=== PATIENT | female | born 1940 | race Caucasian/White ===

== ENCOUNTER 2017-04-04 16:11 | Inpatient (IN) ==
[2017-04-04 16:50] LABS: Basophils % 0.1 %; Eosinophils # 0.1 K/mcL (0.0-0.6); Eosinophils % 0.7 %; Hematocrit 32.2 % (35.3-44.9); Hemoglobin 10.6 g/dL (11.5-15.4); Immature Granulocytes % 2.2 % (0-4); Lymphocytes % 9.5 %; Mean Corpuscular HGB Conc 32.9 g/dL (31.6-35.5); Mean Corpuscular Hemoglobin 29.6 pg (28.0-33.3); Mean Corpuscular Volume 89.9 fL (83.0-100.0); Mean Platelet Volume 10.7 fL (9.4-12.4); Monocytes # 1.3 K/mcL (0.0-1.3); Monocytes % 13.1 %; Neutrophils # 7.4 K/mcL (1.6-8.9); Platelet Count 199 K/mcL (140-400); Red Blood Count 3.58 M/mcL (3.82-4.97); Red Cell Distribution Width 14.4 % (11.5-14.5); Segmented Neutrophils % 74.4 %
[2017-04-04 17:02] LABS: BUN/Creatinine Ratio 15 (6-26); Blood Urea Nitrogen 14 mg/dL (7-20); Calcium 9.9 mg/dL (8.6-10.8); Carbon Dioxide 22 mEq/L (19-29); Chloride 97 mEq/L (98-109); Glucose 238 mg/dL (70-99); Osmolality,Calculated 284 (280-300); Potassium 3.1 mEq/L (3.5-4.5); Sodium 133 mEq/L (136-145); eGFR For African Americans > 60 (> 60); eGFR For Non-African Americans 57 (> 60)
[2017-04-04 17:24] LABS: Thyroid Stimulating Hormone 2.447 mcIU/mL (0.350-4.840)
[2017-04-04] MEDS ORDERED: Levofloxacin 750 MG/150 ML 750 MG/150 ML BAG IVPB ONE (17:59)
[2017-04-04] MEDS ORDERED: 0.9 % Sodium Chloride 1,000 ML IVC ONE (17:59)
--- NOTE | 2017-04-04 18:10 | Emergency Department Note ---
Disposition Clinical Impression: Dizziness Pneumonia Qualifiers: Pneumonia type: due to unspecified organism Laterality: right Lung location: lower lobe of lung Qualified Code(s): J18.1 - Lobar pneumonia, unspecified organism Fall Qualifiers: Encounter type: initial encounter Qualified Code(s): W19.XXXA - Unspecified fall, initial encounter Disposition: Admitted As Inpatient Condition: Fair Time of Disposition: 18:11 Fall HPI - General Chief Complaint: ED Fall Stated Complaint: fall Time Seen by Provider: 04/04/17 16:20 Source: patient, EMS Nursing Notes Reviewed: Yes Vital Signs Reviewed: Yes - History of Present Illness HPI Narrative: 76-year-old female presented to the emergency department with concern for local history of cough, and new onset dizziness and falls at home today. Patient fell and hit her head on an ironing board earlier today at 338 this morning. Patient did not come to the emergency department to be left that. She fell again later on this afternoon which prompted them to return. Patient does have past medical history of strokes. Patient does state that she has had this type of dizziness with the stroke. Patient denies any decreased sensation in her arms or legs otherwise. Patient denies any slurring of speech, or issues with getting words out. Patient is currently not on any blood thinners at this time. - Related Data Home Medications Medication Instructions Recorded Confirmed Amlodipine 02/13/15 02/13/15 Clopidogrel 02/13/15 02/13/15 Coreg 02/13/15 02/13/15 Fish Oil 500 mg Softgel 02/13/15 02/13/15 Gabapentin 02/13/15 02/13/15 Glimepiride 02/13/15 02/13/15 Hydrocodone/Acetaminophen 02/13/15 02/13/15 Klor-Con 02/13/15 02/13/15 Levothyroxine 02/13/15 02/13/15 Losartan 02/13/15 02/13/15 Metformin 02/13/15 02/13/15 Pramipexole 02/13/15 02/13/15 Pravastatin Sodium 02/13/15 02/13/15 Primidone 02/13/15 02/13/15 Ropinerole 02/13/15 02/13/15 Sertraline 02/13/15 02/13/15 Vitamin D3/Folic Acid 02/13/15 02/13/15 Previous Rx's Medication Instructions Recorded Azithromycin [Azithromycin 6-Tab 250 mg PO DAILY #6 tab 03/19/16 Pack] Allergies Allergy/AdvReac Type Severity Reaction Status Date / Time Penicillins [PCN] Allergy Swelling Verified 02/13/15 16:30 of Lip/Tongue/Throat Sulfa (Sulfonamide Allergy Swelling Verified 02/13/15 16:30 Antibiotics) of Lip/Tongue/Throat CT dye Allergy Hives Uncoded 02/13/15 16:30 All systems ED: reviewed and negative except as stated. Review of Systems: As Per HPI ENT ED: Reports: other Cardiovascular: Denies: chest pain Respiratory: Reports: cough (Therefore had pain), dyspnea Gastrointestinal: Denies: abdominal pain, nausea, vomiting Neurological: Reports: headache, abnormal gait. Denies: weakness, numbness, paresthesias, confusion Fall PMH - Past Medical History Medical history: Reports: CVA, diabetes, hyperlipidemia, hypertension, thyroid disease Psychiatric history: Reports: anxiety, depression - Social History Smoking Status: Former smoker Alcohol use: Reports: none Drug use: Reports: none Physical Exam CONSTITUTIONAL: Alert and oriented X3, well-nourished 76-year-old female, well appearing, in no apparent distress HEAD: Normocephalic; ecchymosis of the left aspect of the forehead EYES: PERRL, no scleral icterus. NOSE: The nose is normal in appearance without rhinorrhea Neck: Tenderness to palpation of the midline cervical spine RESP: Normal chest excursion with respiration; breath sounds clear and equal bilaterally; no wheezes, rhonchi, or rales CARD: Regular rhythm, without murmurs, rub or gallop Back: Tenderness to palpation of the midthoracic spine ABD: Non-distended; non-tender, soft,without rigidity, rebound or guarding SKIN: Normal for age and race; warm and dry; no apparent lesions Neuro: GCS 15, no focal neurologic deficits, normal finger to nose, no pronator drift, greater nerves II-12 grossly intact. Sensation intact bilaterally in the upper and lower extremities, strength 5 out of 5 in the upper and lower extremities - General General appearance: alert, in no apparent distress Course Vital Signs Temperature 98.8 F 04/04/17 16:13 Pulse Rate 92 04/04/17 16:13 Respiratory Rate 16 04/04/17 16:13 Blood Pressure 172/92 04/04/17 16:13 O2 Sat by Pulse Oximetry 96 04/04/17 16:13 Temperature 98 F 04/04/17 23:19 Pulse Rate 88 04/04/17 23:19 Respiratory Rate 14 04/04/17 23:19 Blood Pressure 167/92 04/04/17 23:19 O2 Sat by Pulse Oximetry 94 04/04/17 23:19 Oxygen Delivery Oxygen Delivery Nasal Cannula Fall - MDM Narrative Medical decision making narrative: 76-year-old female presents to the emergency department with concern for having some dizziness and falls. Patient had ecchymosis along the aspect of her forehead. CT scan of the head was obtained without contrast to rule out intracranial hemorrhage. This is negative. CT scan was also obtained of the cervical, thoracic, lumbar spine. This is negative as well. Patient's chest CT reveals patchy opacity of the right lower lobe that was concerning for pneumonia. Patient did complain of a month-long history of cough, so I clinically do suspect a pneumonia. I gave the patient Levaquin here in the emergency department to treat her pneumonia. I also admitted the patient to the hospital because there was concern that patient may need a further evaluation as to the aspect of her dizziness and cerebellar dysfunction. I discussed the plan with the patient family at bedside and they agreed. Patient was admitted to the hospitalist. Patient was in no acute distress and hemodynamically stable at time of admission. Abdomen/Pelvis CT 04/04/17 16:25 IMPRESSION: No acute traumatic abnormality in the chest, abdomen, or pelvis on this noncontrast examination. Patchy opacity in the right lower lobe, concerning for pneumonia and/or aspiration. Diverticulosis. D/ / 04/04/2017 17:29:05 Nigel Bryant MD / [place] Interpreting Provider: Nigel Bryant MD Chest CT 04/04/17 16:25 IMPRESSION: No acute traumatic abnormality in the chest, abdomen, or pelvis on this noncontrast examination. Patchy opacity in the right lower lobe, concerning for pneumonia and/or aspiration. Diverticulosis. D/ / 04/04/2017 17:29:05 Nigel Bryant MD / [place] Interpreting Provider: Nigel Bryant MD Head CT 04/04/17 16:25 IMPRESSION: No acute intracranial abnormality. Mild soft tissue swelling along the inferior left forehead without evidence of fracture. D/ / William Carr MD / William Carr MD Interpreting Provider: William Carr MD Cervical Spine CT 04/04/17 16:28 IMPRESSION: 1. Decreased bone mineral density. 2. Normal alignment with multilevel degenerative changes resulting in foraminal stenosis. 3. No acute fracture. D/ / 04/04/2017 17:16:33 Rene Landeros MD / [place] Interpreting Provider: Rene Landeros MD Lumbar Spine CT 04/04/17 18:10 IMPRESSION: No acute thoracic or lumbar spine abnormality. D/ / Julian Lu MD / Julian Lu MD Interpreting Provider: Julian Lu MD Thoracic Spine CT 04/04/17 18:10 IMPRESSION: No acute thoracic or lumbar spine abnormality. D/ / Julian Lu MD / Julian Lu MD Interpreting Provider: Julian Lu MD Vital Signs Temperature 98.8 F 04/04/17 16:13 Pulse Rate 92 04/04/17 16:13 Respiratory Rate 16 04/04/17 16:13 Blood Pressure 172/92 04/04/17 16:13 O2 Sat by Pulse Oximetry 96 04/04/17 16:13 Temperature 98 F 04/04/17 23:19 Pulse Rate 88 04/04/17 23:19 Respiratory Rate 14 04/04/17 23:19 Blood Pressure 167/92 04/04/17 23:19 O2 Sat by Pulse Oximetry 94 04/04/17 23:19 Oxygen Delivery Oxygen Delivery Nasal Cannula - Lab Data Result diagrams: 04/04/17 16:39 04/04/17 16:39 Lab Results 04/04/17 04/04/17 04/04/17 Range/Units 16:00 16:39 16:39 WBC 10.0 (4.3-11.1) K/mcL RBC 3.58 L (3.82-4.97) M/mcL Hgb 10.6 L (11.5-15.4) g/dL Hct 32.2 L (35.3-44.9) % MCV 89.9 (83.0-100.0) fL MCH 29.6 (28.0-33.3) pg MCHC 32.9 (31.6-35.5) g/dL RDW 14.4 (11.5-14.5) % Plt Count 199 (140-400) K/mcL MPV 10.7 (9.4-12.4) fL Immature Gran % 2.2 (0-4) % Seg Neutrophils % 74.4 % Lymphocytes % 9.5 % Monocytes % 13.1 % Eosinophils % 0.7 % Basophils % 0.1 % Neutrophils # 7.4 (1.6-8.9) K/mcL Lymphocytes # 1.0 (0.6-4.6) K/mcL Monocytes # 1.3 (0.0-1.3) K/mcL Eosinophils # 0.1 (0.0-0.6) K/mcL Basophils # 0.0 (0.0-0.2) K/mcL Sodium (136-145) mEq/L Potassium (3.5-4.5) mEq/L Chloride (98-109) mEq/L Carbon Dioxide (19-29) mEq/L BUN (7-20) mg/dL Creatinine (0.57-1.11) mg/dL Est GFR ( Amer) (> 60) Est GFR (Non-Af Amer) (> 60) BUN/Creatinine Ratio (6-26) Glucose (70-99) mg/dL Calculated Osmolality (280-300) Calcium (8.6-10.8) mg/dL Troponin I 0.01 (0-0.03) ng/mL TSH (0.350-4.840) mcIU/mL Urine Color Yellow (Yellow) Urine Clarity Clear (Clear) Urine pH 6.5 (5.0-8.0) pH Units Ur Specific Hermin[place] 1.018 (1.010-1.025) Urine Protein Trace (Neg-Trace) mg/dL Urine Glucose (UA) 250 H (Normal) mg/dL Urine Ketones Negative (Negative) mg/dL Urine Blood Trace H (Negative) Urine Nitrite Negative (Negative) Urine Bilirubin Negative (Negative) Urine Urobilinogen Normal (Normal) mg/dL Ur Leukocyte Esterase Negative (Negative) Urine Microscopic RBC 0-3 (0-3) per hpf Urine Microscopic WBC 0-3 (0-3) per hpf Ur Squamous Epith Cells Moderate H (None-Few) per lpf Urine Bacteria None Seen (None-Few) per hpf Hyaline Casts None Seen (None-Few) per lpf Ur Culture Indicated? NO (NO) 04/04/17 Range/Units 16:39 WBC (4.3-11.1) K/mcL RBC (3.82-4.97) M/mcL Hgb (11.5-15.4) g/dL Hct (35.3-44.9) % MCV (83.0-100.0) fL MCH (28.0-33.3) pg MCHC (31.6-35.5) g/dL RDW (11.5-14.5) % Plt Count (140-400) K/mcL MPV (9.4-12.4) fL Immature Gran % (0-4) % Seg Neutrophils % % Lymphocytes % % Monocytes % % Eosinophils % % Basophils % % Neutrophils # (1.6-8.9) K/mcL Lymphocytes # (0.6-4.6) K/mcL Monocytes # (0.0-1.3) K/mcL Eosinophils # (0.0-0.6) K/mcL Basophils # (0.0-0.2) K/mcL Sodium 133 L (136-145) mEq/L Potassium 3.1 L (3.5-4.5) mEq/L Chloride 97 L (98-109) mEq/L Carbon Dioxide 22 (19-29) mEq/L BUN 14 (7-20) mg/dL Creatinine 0.95 (0.57-1.11) mg/dL Est GFR ( Amer) > 60 (> 60) Est GFR (Non-Af Amer) 57 L (> 60) BUN/Creatinine Ratio 15 (6-26) Glucose 238 H (70-99) mg/dL Calculated Osmolality 284 (280-300) Calcium 9.9 (8.6-10.8) mg/dL Troponin I (0-0.03) ng/mL TSH 2.447 (0.350-4.840) mcIU/mL Urine Color (Yellow) Urine Clarity (Clear) Urine pH (5.0-8.0) pH Units Ur Specific Herminie (1.010-1.025) Urine Protein (Neg-Trace) mg/dL Urine Glucose (UA) (Normal) mg/dL Urine Ketones (Negative) mg/dL Urine Blood (Negative) Urine Nitrite (Negative) Urine Bilirubin (Negative) Urine Urobilinogen (Normal) mg/dL Ur Leukocyte Esterase (Negative) Urine Microscopic RBC (0-3) per hpf Urine Microscopic WBC (0-3) per hpf Ur Squamous Epith Cells (None-Few) per lpf Urine Bacteria (None-Few) per hpf Hyaline Casts (None-Few) per lpf Ur Culture Indicated? (NO) - EKG Data EKG attestation: Yes I reviewed and interpreted this EKG. EKG results narrative: 17:27 82 bpm, FL interval 244 ms, QRS duration 106, QT 414 ms, QTC 453 ms, normal axis. Sinus rhythm with a ventricular rate of 83 bpm. There is first-degree AV block. There are no changes on his electrocardiogram in comparison with a previous one performed on March 19, 2016 Attestation Statement - Attestation Attestation: I examined this patient and my medical decision-making was reviewed with the Resident Physician. I agree with the documented findings, disposition and treatment plan as described except to the extent set forth below. Findings consistent with fall. CT scan shows no evidence of acute fracture or injury. Patient was found to have pneumonia. Will admit for evaluation of pneumonia. Started on Levaquin. Patient stable at time of admission.
[2017-04-04 18:11] LABS: Bilirubin,Urine Negative (Negative); Blood,Urine Trace (Negative); Clarity,Urine Clear (Clear); Color,Urine Yellow (Yellow); Glucose,Urine (UA) 250 mg/dL (Normal); Ketones,Urine Negative (Negative); Leukocyte Esterase,Urine Negative (Negative); Nitrite,Urine Negative (Negative); PH,Urine 6.5 pH Units (5.0-8.0); Protein,Urine Trace mg/dL (Neg-Trace); Specific Gravity,Urine 1.018 (1.010-1.025); Urobilinogen,Urine Normal (Normal)
[2017-04-04 18:14] LABS: Bacteria,Urine None Seen per hpf (None-Few); Hyaline Casts,Urine None Seen per lpf (None-Few); RBC,Urine 0-3 per hpf (0-3); Squamous Epithelial Cell,Urine Moderate per lpf (None-Few); WBC,Urine 0-3 per hpf (0-3)
[2017-04-04] MEDS ORDERED: Ondansetron 4 MG/2 ML VIAL IVP PRN (19:21)
[2017-04-04] MEDS ORDERED: Naloxone 0.4 MG/ML INJ IVP PRN (19:21)
[2017-04-04] MEDS ORDERED: Acetaminophen 325 MG TABLET PO PRN (19:21)
[2017-04-04] MEDS ORDERED: D5% in Water 1,000 ML IVC PRN (19:24)
[2017-04-04] MEDS ORDERED: *HR* Dextrose 50 % in Water (Syg) 50 ML SYRINGE IVP PRN (19:24)
[2017-04-04] MEDS ORDERED: Dextrose Gel 15 GM PO PRN ×2 (19:24)
[2017-04-04] MEDS ORDERED: Benzonatate 100 MG CAPSULE PO PRN (19:26)
--- NOTE | 2017-04-04 19:40 | Internal Med History&Physical ---
Date of Encounter: 04/04/17 Time of Encounter: 19:29 Assessment and Plan (1) Pneumonia Current visit: Yes Status: Acute 1 patient has been experiencing weakness and fatigue as well as an unproductive cough. CT chest does reveal right lower lobe opacity. Blood cultures have been obtained patient was initiated on Levaquin which we will continue Continue with Bronchodilators Oxygen as needed titrated to maintain SPO2 greater than 92% Qualifiers: Pneumonia type: due to unspecified organism Laterality: right Lung location: lower lobe of lung Qualified Code(s): J18.1 - Lobar pneumonia, unspecified organism (2) Fall Current visit: Yes Status: Acute 1 patient has been experiencing frequent falls she fell twice today but I suspect is related to pneumonia-she previously fell approx [address] We will place patient on fall precautions Consult PT and OT Qualifiers: Encounter type: initial encounter Qualified Code(s): W19.XXXA - Unspecified fall, initial encounter (3) EKG abnormality Current visit: Yes Status: Acute 1. Patient does have a prolonged MS interval on EKG compared to previous. She also has a systolic murmur which she states is new. We will obtain cardiac echo 2 recheck EKG in a.m. (4) Diabetes mellitus Current visit: Yes Status: Acute 1 Accu-Cheks before meals at bedtime for sinus scale insulin and we will hold oral medications for now. 2 diabetic diet Qualifiers: Diabetes mellitus type: type 2 Diabetes mellitus complication status: without complication Diabetes mellitus joint terminal attack controller insulin use: without mcc use Qualified Code(s): E11.9 - Type 2 diabetes mellitus without complications (5) DVT prophylaxis Current visit: Yes Status: Acute [facility] Internal Medicine - H&P: HPI Chief complaint: fall Admitted From: Emergency Dept Plans for Post Hospital Care: Home History of present illness: Ms. White is a 76 year old female Has a glass or CVA 2 diabetes hyperlipidemia hypertension and breast cancer and hypothyroid . She will call to 3 AM this morning to use the restroom and she was walking she began to fall forward she hit her face she is too weak to get back up. Her assisted her back to bed. Later on in the day the patient had another episode where she fell forward again she felt too weak to get up. She has been experiencing a nonproductive cough no fevers or chills chest pain or shortness of breath. She contributes to the cough to seasonal allergies. She presented to the ER with the above complaints. According to ER records CT scan of head and neck thoracic spine abdomen and pelvis were all negative for any acute fractures or traumatic injuries. CT of chest did reveal right lower lobe opacities concerning for pneumonia. Patient was somewhat hypoxic with SPO2 93% was placed on 2 L nasal cannula. Blood cultures were obtained patient was initiated on Levaquin and has been admitted for further workup and evaluation. Presently patient is on. Respiratory distress she denies any chest pain or shortness of breath at this time. She is hemodynamically stable. I rviewed this case with Dr Sahni who agrees with plan Past Med Surg Social Fam HX - Past Medical History Medical history: CVA, diabetes, hyperlipidemia, hypertension, thyroid disease Psychiatric history: anxiety, depression - Social History Smoking Status: Former smoker Smokeless Tobacco Status: No Alcohol use: none Drug use: none Internal Medicine - H&P: Meds Amlodipine 02/13/15 [History] Clopidogrel 02/13/15 [History] Coreg 02/13/15 [History] Fish Oil 500 mg Softgel 02/13/15 [History] Gabapentin 02/13/15 [History] Glimepiride 02/13/15 [History] Hydrocodone/Acetaminophen 02/13/15 [History] Klor-Con 02/13/15 [History] Levothyroxine 02/13/15 [History] Losartan 02/13/15 [History] Metformin 02/13/15 [History] Pramipexole 02/13/15 [History] Pravastatin Sodium 02/13/15 [History] Primidone 02/13/15 [History] Ropinerole 02/13/15 [History] Sertraline 02/13/15 [History] Vitamin D3/Folic Acid 02/13/15 [History] Azithromycin [Azithromycin 6-Tab Pack] 250 mg PO DAILY #6 tab 03/19/16 [Rx] 3 Allergy/AdvReac Type Severity Reaction Status Date / Time Penicillins [PCN] Allergy Swelling Verified 02/13/15 16:30 of Lip/Tongue/Throat Sulfa (Sulfonamide Allergy Swelling Verified 02/13/15 16:30 Antibiotics) of Lip/Tongue/Throat CT dye Allergy Hives Uncoded 02/13/15 16:30 All Systems PM: A 10-system review of systems was performed and is negative for pertinent findings except as documented above in the HPI. - Constitutional Constitutional: fatigue, weakness, no chills, no fever(s), no night sweats - EENT Eyes: no change in vision, no discharge, no pain, no photophobia Ears: no ear discharge, no ear pain, no tinnitus Nose, mouth and throat: no dysphagia, no nasal discharge, no neck pain, no sore throat - Cardiovascular Cardiovascular ROS IM: no chest pain, no diaphoresis, no dyspnea, no lightheadedness, no palpitations, no syncope - Respiratory Respiratory: cough - Gastrointestinal Gastrointestinal: no abdominal pain, no diarrhea, no hematemesis, no hematochezia, no melena, no nausea, no vomiting - Genitourinary Genitourinary: no change in urinary stream, no dysuria, no flank pain, no hematuria - Musculoskeletal Musculoskeletal ROS IM: no numbness, no tingling - Integumentary Integumentary IM: no rash, no unusual bruising - Neurological Neurological ROS: frequent falls, no confusion, no convulsions, no focal weakness, no numbness, no tingling, no tremor(s) - Hematologic/Lymphatic Hematologic/Lymphatic: no easy bruising - Constitutional Vitals: Temp Pulse Resp BP Pulse Ox 98.8 F 84 16 165/94 93 04/04/17 16:13 04/04/17 18:53 04/04/17 18:53 04/04/17 18:53 04/04/17 18:53 General appearance: Present: A&O X 3 - Head Head exam: Present: atraumatic, normocephalic - Eye Eye exam: Present: PERRL, conjuntiva pink, sclera anicteric Pupils: Present: PERRL - Neck Neck exam general surgery: Present: supple, trachea midline. Absent: lymphadenopathy - Respiratory Respiratory exam: Present: CTAB. Absent: accessory muscle use, rales, rhonchi, wheezes - Cardiovascular Cardiovascular exam: Present: RRR, +S1, +S2, systolic murmur. Absent: diastolic murmur, gallop, rubs - GI/Abdominal GI/Abdominal exam: Present: normal bowel sounds, soft, no peritoneal signs. Absent: distended, tenderness - Extremities Exam Extremities exam: Present: warm, radial pulses palpable and symmetrical. Absent : calf tenderness, cyanotic, pedal edema - Neurological Exam Neurological exam: Present: CN II-XII intact, oriented X3, no focal deficits. Absent: pronater drift, facial droop, speech deficit - Skin Skin exam: Present: dry, intact Internal Med - H&P Results - Labs CBC & Chem 7: 04/04/17 16:39 04/04/17 16:39 - EKG Data EKG shows normal: sinus rhythm - EKG Data Prior EKG available for review: yes When compared to previous EKG: there are significant changes EKG comments: 04/04/17 20:03 Prolonged MS interval compared to previous 04/04/17 20:03 - Diagnostic Studies Other Images Additional comments: Abdomen/Pelvis CT 04/04/17 16:25 IMPRESSION: No acute traumatic abnormality in the chest, abdomen, or pelvis on this noncontrast examination. Patchy opacity in the right lower lobe, concerning for pneumonia and/or aspiration. Diverticulosis. D/ / 04/04/2017 17:29:05 Nigel Bryant MD / [place] Interpreting Provider: Nigel Bryant MD Chest CT 04/04/17 16:25 IMPRESSION: No acute traumatic abnormality in the chest, abdomen, or pelvis on this noncontrast examination. Patchy opacity in the right lower lobe, concerning for pneumonia and/or aspiration. Diverticulosis. D/ / 04/04/2017 17:29:05 Niegl Bryant MD / [place] Interpreting Provider: Nigel Bryant MD Head CT 04/04/17 16:25 IMPRESSION: No acute intracranial abnormality. Mild soft tissue swelling along the inferior left forehead without evidence of fracture. D/ / William Carr MD / William Carr MD Interpreting Provider: William Carr MD Cervical Spine CT 04/04/17 16:28 IMPRESSION: 1. Decreased bone mineral density. 2. Normal alignment with multilevel degenerative changes resulting in foraminal stenosis. 3. No acute fracture. D/ : / 04/04/2017 17:16:33 Rene Landeros MD / [place] Interpreting Provider: Rene Landeros MD Lumbar Spine CT 04/04/17 18:10 IMPRESSION: No acute thoracic or lumbar spine abnormality. D/ / Julian Lu MD / Julian Lu MD Interpreting Provider: Julian Lu MD Thoracic Spine CT 04/04/17 18:10
[2017-04-04] MEDS ORDERED: Potassium Citrate 10 MEQ TABLET.ER PO ONE (19:47)
[2017-04-04] MEDS ORDERED: *HR* Morphine 2 MG/ML SYRINGE IVP ONE (20:06)
[2017-04-04] MEDS ORDERED: Aspirin 81 MG TAB.CHEW PO SCH (21:45)
[2017-04-04] MEDS: Insulin LISPRO 300 UNITS/3 ML VIAL SQ SCH (22:37)
[2017-04-05 05:37] LABS: Basophils % 0.1 %; Eosinophils # 0.1 K/mcL (0.0-0.6); Eosinophils % 1.6 %; Hematocrit 31.7 % (35.3-44.9); Hemoglobin 10.4 g/dL (11.5-15.4); Immature Granulocytes % 2.2 % (0-4); Lymphocytes # 0.5 K/mcL (0.6-4.6); Lymphocytes % 6.3 %; Mean Corpuscular HGB Conc 32.8 g/dL (31.6-35.5); Mean Corpuscular Hemoglobin 29.6 pg (28.0-33.3); Mean Corpuscular Volume 90.3 fL (83.0-100.0); Mean Platelet Volume 11.1 fL (9.4-12.4); Monocytes % 13.8 %; Neutrophils # 5.5 K/mcL (1.6-8.9); Platelet Count 183 K/mcL (140-400); Red Blood Count 3.51 M/mcL (3.82-4.97); Red Cell Distribution Width 14.3 % (11.5-14.5)
[2017-04-05 05:48] LABS: BUN/Creatinine Ratio 14 (6-26); Blood Urea Nitrogen 13 mg/dL (7-20); Calcium 9.5 mg/dL (8.6-10.8); Carbon Dioxide 26 mEq/L (19-29); Chloride 96 mEq/L (98-109); Glucose 249 mg/dL (70-99); Osmolality,Calculated 280 (280-300); Potassium 3.7 mEq/L (3.5-4.5); Sodium 131 mEq/L (136-145); eGFR For African Americans > 60 (> 60); eGFR For Non-African Americans 59 (> 60)
[2017-04-05] MEDS: *HR* Enoxaparin 40 MG/0.4 ML SYRINGE SQ SCH (06:15)
[2017-04-05] MEDS ORDERED: 0.9 % Sodium Chloride 1,000 ML IVC SCH (08:15)
[2017-04-05] MEDS: Insulin LISPRO 300 UNITS/3 ML VIAL SQ SCH ×4 (08:34→21:59)
[2017-04-05] MEDS: amLODIPine 5 MG TABLET PO SCH (08:37)
[2017-04-05] MEDS: Levofloxacin 750 MG/150 ML 750 MG/150 ML BAG IVPB SCH (08:37)
[2017-04-05] MEDS: Ipratropium/Albuterol Neb 3 ML IH SCH ×3 (10:19→22:25)
--- NOTE | 2017-04-05 10:40 | Internal Med Progress Note ---
Date of Encounter: 04/05/17 Time of Encounter: 09:30 - Assessment and plan (1) Pneumonia Current Visit: Yes Status: Acute Assessment and plan: Patient has been experiencing weakness and fatigue as well as an unproductive frequent cough. CT chest does reveal right lower lobe opacity. Blood cultures drawn and pending Continue with Bronchodilators, Levaquin Oxygen as needed, titrate to maintain SPO2 greater than 92%.Pt is not requiring supplemental 02. Qualifiers: Pneumonia type: due to unspecified organism Laterality: right Lung location: lower lobe of lung Qualified Code(s): J18.1 - Lobar pneumonia, unspecified organism (2) Fall Current Visit: Yes Status: Acute Assessment and plan: Patient reports 2 falls on day of admission. She denies falls prior to this. She has no injuries from falls. She is complaining of plantar surface right foot pain, left knee pain, and posterior neck pain. There is no obvious injury to any of the sites. Neck CT was negative. Will apply ice and/or BenGay for comfort. Left knee and right foot x-rays are ordered and pending. Patient states that she is unable to bear weight on right foot due to pain. Qualifiers: Encounter type: initial encounter Qualified Code(s): W19.XXXA - Unspecified fall, initial encounter (3) Diabetes mellitus Current Visit: Yes Status: Acute Assessment and plan: A1c 7.2% in November. We will reorder that has been longer than 90 days. Continue sliding scale insulin, Accu-Cheks before meals at bedtime, diabetic diet. Qualifiers: Diabetes mellitus type: type 2 Diabetes mellitus complication status: without complication Diabetes mellitus correction insulin use: without intermediate school teacher use Qualified Code(s): E11.9 - Type 2 diabetes mellitus without complications (4) EKG abnormality Current Visit: Yes Status: Acute Assessment and plan: On admission, patient had prolonged CA interval on EKG compared to previous. Patient also has murmur that she states is new. She denies chest pain. She denies any shortness of breath or diaphoresis. Cardiac echo ordered and pending. We will continue to monitor EKGs. Continue telemetry. (5) DVT prophylaxis Current Visit: Yes Status: Acute Assessment and plan: Lovenox subcutaneous. Encourage ambulation. - Time Spent With Patient less than 15 minutes - Subjective Interval history: Patient was seen and assessed at 9:30 AM. She is alert, oriented, pleasant. She has hematomas to bilateral orbits. She states she had 2 falls yesterday, once falling face first onto the sidewalk outside of her home. She states that she is feeling significantly better today and is willing to see physical therapy and occupational therapy tomorrow. She reports left knee pain and right plantar surface foot pain. X-rays have been ordered and are pending. She denies nausea, vomiting, diaphoresis, chest pain, dizziness or vision changes. She dates that she had a headache yesterday after the fall, it has resolved today. - Constitutional Vitals: Temp Pulse Resp BP Pulse Ox 98.2 F 75 16 138/76 94 04/05/17 07:21 04/05/17 07:21 04/05/17 07:21 04/05/17 07:21 04/05/17 07:21 General appearance: Present: cooperative, A&O X 3, pleasant, no acute distress, answers questions appropriately - Head Head exam: Present: normocephalic. Absent: atraumatic, normal inspection - Eye Eye exam: Present: periorbital swelling, periorbital tenderness, PERRL, conjuntiva pink, sclera anicteric. Absent: normal appearance - Neck Neck exam general surgery: Present: tenderness, supple, trachea midline Additional comments: Patient fell on iron board and laid on it on her posterior neck for approximately one hour. Tender to palpation today. No obvious signs of injury. - Respiratory Respiratory exam: Present: decreased breath sounds, CTAB. Absent: accessory muscle use, chest wall tenderness, rales, rhonchi, wheezes - Cardiovascular Cardiovascular exam: Present: RRR, +S1, +S2. Absent: diastolic murmur, gallop, rubs, systolic murmur - GI/Abdominal GI/Abdominal exam: Present: normal bowel sounds, soft, no peritoneal signs. Absent: distended, hepatomegaly, tenderness - Extremities Exam Extremities exam: Present: normal capillary refill, normal inspection, tenderness, warm, radial pulses palpable and symmetrical. Absent: calf tenderness, cyanotic, joint swelling, pedal edema - Neurological Exam Neurological exam: Present: alert, oriented X3, no focal deficits. Absent: altered, facial droop, speech deficit - Skin Skin exam: Present: dry, intact, normal color, warm Internal Medicine: Result - Labs CBC & Chem 7: 04/05/17 05:21 04/05/17 05:21 Labs: Short CBC 04/05/17 Range/Units 05:21 WBC 7.3 (4.3-11.1) K/mcL Hgb 10.4 L (11.5-15.4) g/dL Hct 31.7 L (35.3-44.9) % Plt Count 183 (140-400) K/mcL Neutrophils # 5.5 (1.6-8.9) K/mcL BMP 04/05/17 05:21 Sodium 131 L Potassium 3.7 Chloride 96 L Carbon Dioxide 26 BUN 13 Creatinine 0.92 Glucose 249 H Calcium 9.5 Cardiac Enzymes 04/04/17 04/05/17 Range/Units 22:46 05:21 Troponin I 0.01 0.01 (0-0.03) ng/mL Consult Discharge Plan - Plan Referrals: Jovanna Gordillo, LADLE PULLER [Primary Care Provider] -
[2017-04-05] MEDS ORDERED: Methyl Salicylate/Menthol 28 GM TUBE TP PRN (11:14)
[2017-04-05] MEDS ORDERED: amLODIPine 5 MG TABLET PO SCH (15:00)
[2017-04-05] MEDS: Losartan/HCTZ 50-12.5 TABLET PO SCH (17:18)
[2017-04-05] MEDS: Gabapentin 300 MG CAPSULE PO SCH (21:45)
[2017-04-05] MEDS: rOPINIRole 1 MG TABLET PO SCH (21:46)
[2017-04-05] MEDS ORDERED: *HR* Morphine 2 MG/ML SYRINGE IVP PRN (22:17)
[2017-04-06] MEDS: Ipratropium/Albuterol Neb 3 ML IH SCH ×4 (03:29→21:28)
[2017-04-06 05:06] LABS: Eosinophils # 0.1 K/mcL (0.0-0.6); Eosinophils % 1.9 %; Hematocrit 30.2 % (35.3-44.9); Hemoglobin 9.9 g/dL (11.5-15.4); Immature Granulocytes % 1.9 % (0-4); Lymphocytes # 0.7 K/mcL (0.6-4.6); Lymphocytes % 11.8 %; Mean Corpuscular HGB Conc 32.8 g/dL (31.6-35.5); Mean Corpuscular Hemoglobin 29.5 pg (28.0-33.3); Mean Corpuscular Volume 89.9 fL (83.0-100.0); Mean Platelet Volume 11.3 fL (9.4-12.4); Monocytes # 0.9 K/mcL (0.0-1.3); Monocytes % 15.4 %; Neutrophils # 4.1 K/mcL (1.6-8.9); Platelet Count 190 K/mcL (140-400); Red Blood Count 3.36 M/mcL (3.82-4.97); Red Cell Distribution Width 13.9 % (11.5-14.5)
[2017-04-06 05:15] LABS: Hemoglobin A1C 7.7 %
[2017-04-06 05:21] LABS: BUN/Creatinine Ratio 12 (6-26); Blood Urea Nitrogen 11 mg/dL (7-20); Calcium 9.4 mg/dL (8.6-10.8); Carbon Dioxide 24 mEq/L (19-29); Chloride 97 mEq/L (98-109); Glucose 217 mg/dL (70-99); Osmolality,Calculated 276 (280-300); Potassium 3.4 mEq/L (3.5-4.5); Sodium 130 mEq/L (136-145); eGFR For African Americans > 60 (> 60); eGFR For Non-African Americans 59 (> 60)
[2017-04-06] MEDS: *HR* Enoxaparin 40 MG/0.4 ML SYRINGE SQ SCH (05:24)
[2017-04-06] MEDS ORDERED: hydroCHLOROthiazide 25 MG TABLET PO SCH (09:00)
[2017-04-06] MEDS: amLODIPine 5 MG TABLET PO SCH (09:28)
[2017-04-06] MEDS: Losartan/HCTZ 50-12.5 TABLET PO SCH (09:28)
[2017-04-06] MEDS: Cholecalciferol (D-3) 1,000 UNIT TABLET PO SCH (09:28)
[2017-04-06] MEDS: Insulin LISPRO 300 UNITS/3 ML VIAL SQ SCH ×5 (09:29→20:15)
[2017-04-06] MEDS: Levofloxacin 750 MG/150 ML 750 MG/150 ML BAG IVPB SCH (09:30)
--- NOTE | 2017-04-06 10:54 | Electrocardiograph Report ---
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
[2017-04-06] MEDS: (Omega-3/Dha/Epa/Fish Oil [Fish Oil 1,000 Mg Softgel) PO SCH (11:53)
--- NOTE | 2017-04-06 12:08 | Internal Med Progress Note ---
Date of Encounter: 04/06/17 Time of Encounter: 10:50 - Assessment and plan (1) Pneumonia Current Visit: Yes Status: Acute Assessment and plan: Patient has been experiencing weakness and fatigue as well as an unproductive frequent cough for the week prior to admission. CT chest reveals right lower lobe opacity. Blood cultures negative 2 Continue with Bronchodilators, Levaquin Oxygen as needed, titrate to maintain SPO2 greater than 92%.Pt is not requiring supplemental 02. Qualifiers: Pneumonia type: due to unspecified organism Laterality: right Lung location: lower lobe of lung Qualified Code(s): J18.1 - Lobar pneumonia, unspecified organism (2) Fall Current Visit: Yes Status: Acute Assessment and plan: Patient reports 2 falls on day of admission. She denies falls prior to this. She has no injuries from falls. She is complaining of plantar surface right foot pain, left knee pain, and posterior neck pain. There is no obvious injury to any of the sites. Neck CT was negative. Continue ice and/or BenGay for comfort. Left knee and right foot x-rays were negative for acute fracture or dislocation , soft tissue swelling noted to left knee, as well as stable post surgical changes. Continue fall precautions, up with assistance only. Qualifiers: Encounter type: initial encounter Qualified Code(s): W19.XXXA - Unspecified fall, initial encounter (3) Diabetes mellitus Current Visit: Yes Status: Acute Assessment and plan: A1c 7.2% in November, 7.7% today. Continue sliding scale insulin, Accu-Cheks before meals at bedtime, diabetic diet. Qualifiers: Diabetes mellitus type: type 2 Diabetes mellitus complication status: without complication Diabetes mellitus shelter insulin use: without shelter use Qualified Code(s): E11.9 - Type 2 diabetes mellitus without complications (4) EKG abnormality Current Visit: Yes Status: Acute Assessment and plan: On admission, patient had prolonged IA interval on EKG compared to previous. Patient also has murmur that she states is new. She denies chest pain. She denies any shortness of breath or diaphoresis. Cardiac echo completed, shows severe . Cardiology consult We will continue to monitor EKGs. Continue telemetry. (5) DVT prophylaxis Current Visit: Yes Status: Acute Assessment and plan: Lovenox subcutaneous. Encourage ambulation. - Time Spent With Patient less than 15 minutes - Subjective Interval history: Patient was seen and assessed at 1050 AM. She is alert, oriented, pleasant. She has hematomas to bilateral orbits, increased since yesterday. She denies change to her vision, dizziness, or difficulty with balance. She reports improvement in pain to left knee and right foot. She denies nausea, vomiting, diaphoresis, chest pain, dizziness, headache, or vision changes. AT this time we are still waiting on PT/OT evaluation and recommendations. Pt denies any recent chest pain or sob, states that she does feel more fatigued than normal, was not aware of . - Constitutional Vitals: Temp Pulse Resp BP Pulse Ox 98.1 F 63 15 115/72 94 04/06/17 11:30 04/06/17 11:30 04/06/17 11:30 04/06/17 11:30 04/06/17 11:30 General appearance: Present: cooperative, A&O X 3, pleasant, no acute distress, answers questions appropriately - Head Head exam: Present: atraumatic, normal inspection, normocephalic - Eye Eye exam: Present: normal appearance, conjuntiva pink, sclera anicteric - Neck Neck exam general surgery: Present: supple, trachea midline. Absent: lymphadenopathy - Respiratory Respiratory exam: Present: CTAB. Absent: accessory muscle use, chest wall tenderness, rales, respiratory distress, rhonchi, wheezes - Cardiovascular Cardiovascular exam: Present: RRR, +S1, +S2. Absent: diastolic murmur, gallop, rubs, systolic murmur - GI/Abdominal GI/Abdominal exam: Present: normal bowel sounds, soft, no peritoneal signs. Absent: distended, hepatomegaly, tenderness - Extremities Exam Extremities exam: Present: normal capillary refill, warm, radial pulses palpable and symmetrical. Absent: calf tenderness, cyanotic, pedal edema - Neurological Exam Neurological exam: Present: alert, oriented X3, no focal deficits. Absent: altered, facial droop, speech deficit - Skin Skin exam: Present: dry, intact, normal color, warm. Absent: rash Internal Medicine: Result - Labs CBC & Chem 7: 04/06/17 04:31 04/06/17 04:31 Labs: Short CBC 04/06/17 Range/Units 04:31 WBC 5.9 (4.3-11.1) K/mcL Hgb 9.9 L (11.5-15.4) g/dL Hct 30.2 L (35.3-44.9) % Plt Count 190 (140-400) K/mcL Neutrophils # 4.1 (1.6-8.9) K/mcL BMP 04/06/17 04:31 Sodium 130 L Potassium 3.4 L Chloride 97 L Carbon Dioxide 24 BUN 11 Creatinine 0.92 Glucose 217 H Calcium 9.4 - Impressions Impressions Foot X-Ray 04/05/17 10:33 IMPRESSION: Postsurgical changes from prior right knee arthroplasty with mild soft tissue swelling seen over the patella which may be secondary to hematoma. No acute abnormality seen within the right foot. D/ / 04/05/2017 22:18:23 Angus Gonzalez MD / [place] Interpreting Provider: Angus Gonzalez MD Echocardiogram 04/05/17 12:00 Impressions: Technically adequate exam. Normal sinus rhythm. LVEF 65%. Mild concentric left ventricular hypertrophy. Mildly dilated left atrium. Trileaflet aortic valve. Severe aortic stenosis., ELIGIO 0.71 m2 Mild mitral regurgitation. Mild tricuspid regurgitation. Left Ventricular Wall Motion: Rest Echo Findings All wall segments showed normal motion. Findings: Study Quality * Technically adequate exam. ECG Findings * Normal sinus rhythm. Left Ventricle * LVEF 65%. * Mild concentric left ventricular hypertrophy. * There is no LV thrombus. Right Ventricle * Normal right ventricular structure and function. Left Atrium * Mildly dilated left atrium. Right Atrium * Normal right atrial size. Interatrial Septum * No evidence of PFO by color Doppler. Aortic Valve * Trileaflet aortic valve. * Mildly calcified aortic valve leaflets. * Moderately sclerotic aortic valve leaflets. * Mildly thickened aortic valve leaflets. * Trace aortic regurgitation. * Severe aortic stenosis., ELIGIO 0.71 m2 * Aortic valve leaflets are restricted. Mitral Valve * Normal mitral valve structure and function. * Mild mitral regurgitation. * Leaflets are not restricted. Tricuspid Valve * Mild tricuspid regurgitation. Pulmonic Valve * Pulmonic valve is not well visualized. Aorta * Normally sized aortic root. Pericardium * The pericardium appears normal. Knee X-Ray 04/05/17 20:45 IMPRESSION: Postsurgical changes from prior right knee arthroplasty with mild soft tissue swelling seen over the patella which may be secondary to hematoma. No acute abnormality seen within the right foot. D/ / 04/05/2017 22:18:23 Angus Gonzalez MD / [place] Interpreting Provider: Angus Gonzalez MD Consult Discharge Plan - Plan Referrals: Jovanna Gordillo CNP [Primary Care Provider] -
--- NOTE | 2017-04-06 14:28 | Cardiology Consult Note ---
<Jordana Deluca - Last Filed: 04/06/17 15:07> Date of Encounter: 04/06/17 Time of Encounter: 13:30 Assessment and Plan (1) Pneumonia Current Visit: Yes Status: Acute Per cardiology: -Pneumonia noted per CT. -ON ATB. -Management per primary service. Qualifiers: Pneumonia type: due to unspecified organism Laterality: right Lung location: lower lobe of lung Qualified Code(s): J18.1 - Lobar pneumonia, unspecified organism (2) Fall Current Visit: Yes Status: Acute Per cardiology: -Fell at home. -Denies syncope. -Denies dizziness of lightheadedness. -Management per primary service. Qualifiers: Encounter type: initial encounter Qualified Code(s): W19.XXXA - Unspecified fall, initial encounter (3) Aortic stenosis Current Visit: Yes Status: Acute Per cardiology: -TTE this admission with severe . LVEF preserved, no wall motion abnormalities noted. -Previous TTE 2013 with sclerotic arotic leaflets, trace AR, no noted. -Denies previous history. -Euvolemic on exam. -Denies increased shortness of breath. -Anticipate cardiology sign off and will follow in outpatient setting. Follow up set. Qualifiers: Cardiac valve disease etiology: etiology unspecified Qualified Code(s): I35.0 - Nonrheumatic aortic (valve) stenosis Discussion w patient/family: The assessment and plan as outlined above was discussed with the patient and/or family members who expressed understanding and agreement. All questions were answered. Thank you for involving us in the care of your patient. Please call with any questions. Discussed and reviewed with . History of Present Illness Consult date: 04/06/17 Requesting physician: Estela Sanchez Consult reason: severe Chief complaint: fall History of present illness: Ms. White is a 76 year old female with a relevant past medical history of HTN , DM, thyroid disorder, hyperlipidemia, CVA x2, breast cancer s/p lumpectomy, bilateral knee surgeries. Patient presented to [facility] after a fall. Patient states she did not lose consciousness, she just fell. Patient denies dizziness or lightheadedness. Patient reports has had upper respiratory symptoms with cough and congestion. Patient reports has some pedal edema, if she is on her feet for too long and states this is about baseline for her. Patient denies increased shortness of breath. Past Med Surg Social Fam HX - Past Medical History Attestation: Yes The following information was validated with the patient. Source: patient, old records reviewed, obtained from family Medical history: CVA, diabetes, hyperlipidemia, hypertension, thyroid disease Psychiatric history: anxiety, depression - Social History Smoking Status: Former smoker Smokeless Tobacco Status: No Alcohol use: none Drug use: none - Family History Mother Hx Family Cardiac Disorders: Yes (HTN) Hx Family Respiratory Disorders: No Hx Family Cancer: No Hx Family GI Disorders: No Hx Family Genitourinary Disorders: No Hx Family Endocrine Disorder: Yes (DM) Hx Family Musculoskeletal Disorders: No Hx Family Neuromuscular Disorders: No Hx Family Neurologic Disorders: Yes (Dementia) Hx Family HEENT Disorders: Yes (Hearing loss) Hx Family Autoimmune Disorders: No Hx Family Reproductive Disorders: No Hx Family Psychosocial Disorders: No Hx Family Medical Disorders: No Brother Hx Family Cardiac Disorders: Yes ([place]) Hx Family Respiratory Disorders: Yes (COPD) Hx Family Cancer: Yes (Prostate) Hx Family GI Disorders: No Hx Family Genitourinary Disorders: No Hx Family Endocrine Disorder: No Hx Family Musculoskeletal Disorders: No Hx Family Neuromuscular Disorders: No Hx Family Neurologic Disorders: No Hx Family HEENT Disorders: No Hx Family Autoimmune Disorders: No Hx Family Reproductive Disorders: No Hx Family Psychosocial Disorders: No Hx Family Medical Disorders: No Medications and Allergies Amlodipine Besylate [Amlodipine Besylate] 10 mg PO DAILY 04/05/17 [History] Cholecalciferol (Vitamin D3) [Vitamin D] 1,000 unit PO DAILY 04/05/17 [History] Clopidogrel [Plavix] 75 mg PO DAILY 04/05/17 [History] Gabapentin [Neurontin] 600 mg PO HS 04/05/17 [History] Levothyroxine Sodium [Levothyroxine Sodium] 75 mcg PO DAILY 04/05/17 [History] Losartan/Hydrochlorothiazide [Hyzaar 100-25 Tablet] 1 tab PO DAILY 04/05/17 [ History] [place]-3/Dha/Epa/Fish Oil [Fish Oil 1,000 mg Softgel] 1,000 mg PO DAILY 04/05/17 [History] Potassium Chloride [K-Tab ER] 20 meq PO BID 04/05/17 [History] Pravastatin Sodium [Pravachol] 40 mg PO DAILY 04/05/17 [History] Ropinirole HCl [Requip] 4 mg PO HS 04/05/17 [History] Sertraline [Zoloft] 100 mg PO DAILY 04/05/17 [History] glipiZIDE [Glucotrol] 5 mg PO DAILY 04/05/17 [History] hydroCHLOROthiazide [Hydrochlorothiazide] 25 mg PO DAILY 04/05/17 [History] metFORMIN [Glucophage] 1,000 mg PO BID 04/05/17 [History] 3 Allergy/AdvReac Type Severity Reaction Status Date / Time Penicillins [PCN] Allergy Swelling Verified 02/13/15 16:30 of Lip/Tongue/Throat Sulfa (Sulfonamide Allergy Swelling Verified 02/13/15 16:30 Antibiotics) of Lip/Tongue/Throat CT dye Allergy Hives Uncoded 02/13/15 16:30 All Systems Review: A 10-system review of systems was performed and is negative for pertinent findings except as documented above in the HPI. - Constitutional Constitutional: frequent falls - Cardiovascular Cardiovascular: as per HPI - Respiratory Respiratory: cough Physical Examination Vital Signs, Last 4 Hours Temp Pulse Resp BP Pulse Ox 04/06/17 11:30 98.1 F 63 15 115/72 94 04/06/17 10:36 20 96 General: Conversant, No Apparent Distress HEENT: Atraumatic, Normocephaly, Mucus Membranes Moist Neck: No JVD, Normal carotid pulses Cardiac: Reg Rate and Rhythm, Normal S1 and S2, Other (Systolic murmur noted. ) Lungs: Normal Breath Sounds, No Wheeze, Rales, Rhonchi Neuro: Alert and responsive, No focal deficits noted Abdomen: Soft, Non-Tender Skin: No rashes noted on visualized skin, Other (Ecchymosis noted to bilateral eyes. ) Musculoskeletal: No Chest Wall Tenderness Extremities: No Clubbing, No Cyanosis, No Edema, Normal Pulses Results 04/06/17 04:31 04/06/17 04:31 Lab Results Impressions Foot X-Ray 04/05/17 10:33 IMPRESSION: Postsurgical changes from prior right knee arthroplasty with mild soft tissue swelling seen over the patella which may be secondary to hematoma. No acute abnormality seen within the right foot. D/ / 04/05/2017 22:18:23 Angus Gonzalez MD / [facility] Interpreting Provider: Angus Gonzalez MD Echocardiogram 04/05/17 12:00 Impressions: Technically adequate exam. Normal sinus rhythm. LVEF 65%. Mild concentric left ventricular hypertrophy. Mildly dilated left atrium. Trileaflet aortic valve. Severe aortic stenosis., ELIGIO 0.71 m2 Mild mitral regurgitation. Mild tricuspid regurgitation. Left Ventricular Wall Motion: Rest Echo Findings All wall segments showed normal motion. Findings: Study Quality * Technically adequate exam. ECG Findings * Normal sinus rhythm. Left Ventricle * LVEF 65%. * Mild concentric left ventricular hypertrophy. * There is no LV thrombus. Right Ventricle * Normal right ventricular structure and function. Left Atrium * Mildly dilated left atrium. Right Atrium * Normal right atrial size. Interatrial Septum * No evidence of PFO by color Doppler. Aortic Valve * Trileaflet aortic valve. * Mildly calcified aortic valve leaflets. * Moderately sclerotic aortic valve leaflets. * Mildly thickened aortic valve leaflets. * Trace aortic regurgitation. * Severe aortic stenosis., ELIGIO 0.71 m2 * Aortic valve leaflets are restricted. Mitral Valve * Normal mitral valve structure and function. * Mild mitral regurgitation. * Leaflets are not restricted. Tricuspid Valve * Mild tricuspid regurgitation. Pulmonic Valve * Pulmonic valve is not well visualized. Aorta * Normally sized aortic root. Pericardium * The pericardium appears normal. Knee X-Ray 04/05/17 20:45 IMPRESSION: Postsurgical changes from prior right knee arthroplasty with mild soft tissue swelling seen over the patella which may be secondary to hematoma. No acute abnormality seen within the right foot. D/ / 04/05/2017 22:18:23 Angus Gonzalez MD / [facility] Interpreting Provider: Angus Gonzalez MD Active Medications Acetaminophen (Tylenol) 650 mg PO Q6HR PRN PRN Reason: Mild Pain (1-3) Stop: 10/04/17 19:22 Last Admin: 04/05/17 11:58 Dose: 650 mg Albuterol/Ipratropium (Duoneb) 3 ml IH [id number] [facility] Stop: 10/05/17 10:01 Last Admin: 04/06/17 10:36 Dose: 3 ml Amlodipine Besylate (Norvasc) 10 mg PO DAILY [facility] Stop: 10/05/17 09:01 Last Admin: 04/06/17 09:28 Dose: 10 mg Benzonatate (Tessalon) 100 mg PO TID PRN PRN Reason: Cough Stop: 10/04/17 19:27 Carvedilol (Coreg) 12.5 mg PO BIDWM KATYA PRN Reason: Protocol Stop: 10/04/17 21:46 Last Admin: 04/06/17 09:28 Dose: 12.5 mg Clopidogrel Bisulfate (Plavix) 75 mg PO DAILY KATYA Stop: 10/05/17 09:01 Last Admin: 04/06/17 09:28 Dose: 75 mg Dextrose/Water (Dextrose 50% (Syg)) 25 ml IVP AD PRN PRN Reason: Hypoglycemia Stop: 10/04/17 19:25 Enoxaparin Sodium (Lovenox) 40 mg SQ 0600 KATYA PRN Reason: Protocol Stop: 10/05/17 06:01 Last Admin: 04/06/17 05:24 Dose: 40 mg Gabapentin (Neurontin) 600 mg PO HS KATYA Stop: 10/05/17 21:01 Last Admin: 04/05/17 21:45 Dose: 600 mg Glucagon (Glucagen) 1 mg IM ONCE PRN PRN Reason: Hypoglycemia Stop: 10/04/17 19:25 Glucose (Gluctose) 15 gm PO ONCE PRN PRN Reason: Hypoglycemia Stop: 10/04/17 19:25 Glucose (Gluctose) 30 gm PO ONCE PRN PRN Reason: Hypoglycemia Stop: 10/04/17 19:25 HCTZ/Losartan Potassium (Hyzaar 50/12.5) 2 each PO DAILY KATYA Stop: 10/05/17 15:01 Last Admin: 04/06/17 09:28 Dose: 2 each Dextrose (Dextrose 5%) 1,000 mls @ 100 mls/hr IVC .Q10H PRN PRN Reason: HYPOGLYCEMIA Stop: 10/04/17 19:25 Levofloxacin/Dextrose (Levaquin Premix 750mg/150 Ml) 750 mg in 150 mls @ 100 mls/hr IVPB DAILY KATYA PRN Reason: Protocol Stop: 10/05/17 09:01 Last Admin: 04/06/17 09:30 Dose: 100 mls/hr Insulin Human Lispro (Humalog) 0 units SQ HS [facility] PRN Reason: Protocol Stop: 10/04/17 21:01 Last Admin: 04/05/17 21:59 Dose: 3 units Insulin Human Lispro (Humalog) 0 units SQ TIDAC KATYA PRN Reason: Protocol Stop: 10/05/17 07:31 Last Admin: 04/06/17 09:29 Dose: 6 units Levothyroxine Sodium (Synthroid) 75 mcg PO 0630 KATYA Stop: 10/06/17 06:31 Last Admin: 04/06/17 05:24 Dose: 75 mcg Menthol/Methyl Salicylate (Bengay) 1 appl TP BID PRN PRN Reason: neck pain Stop: 10/05/17 11:15 Morphine Sulfate (Morphine Sulfate) 2 mg IVP Q8HR PRN PRN Reason: Moderate Pain Stop: 10/05/17 22:18 Last Admin: 04/05/17 22:23 Dose: 2 mg Naloxone HCl (Narcan) 0.4 mg IVP Q2MIN PRN PRN Reason: Opioid Reversal Stop: 10/04/17 19:22 Ondansetron HCl (Zofran) 4 mg IVP Q8HR PRN PRN Reason: Nausea And Vomiting Stop: 10/04/17 19:22 Pharmacy Profile Note (Patient Taking Own Medication) 0 each PO DAILY KATYA Stop: 10/06/17 09:01 Last Admin: 04/06/17 11:53 Dose: Not Given Potassium Chloride (Potassium Chloride) 20 meq PO BID KATYA Stop: 10/05/17 21:01 Last Admin: 04/06/17 09:29 Dose: 20 meq Ropinirole HCl (Requip) 4 mg PO HS KATYA Stop: 10/05/17 21:01 Last Admin: 04/05/17 21:46 Dose: 4 mg Sertraline HCl (Zoloft) 100 mg PO DAILY KATYA Stop: 10/06/17 09:01 Last Admin: 04/06/17 09:27 Dose: 100 mg Simvastatin (Zocor) 20 mg PO DAILY KATYA Stop: 10/06/17 09:01 Last Admin: 04/06/17 09:29 Dose: 20 mg Vitamin D (Vitamin D) 1,000 unit PO DAILY KATYA Stop: 10/06/17 09:01 Last Admin: 04/06/17 09:28 Dose: 1,000 unit Laboratory Tests 04/04/17 04/04/17 04/05/17 16:39 22:46 05:21 Hgb Creatinine Troponin I 0.01 0.01 0.01 04/06/17 04/06/17 04:31 04:31 Hgb 9.9 L Creatinine 0.92 Troponin I - Imaging and Cardiology Chest Xray: report reviewed Echo: report reviewed - EKG Interpretation EKG results cardiology: personally reviewed (ECG with SR, first degree block noted. PAC noted.), other (Patient is not on telemtry to review.) Consult Discharge Plan - Plan Referrals: Jovanna Gordillo, DATA ENTRY [Primary Care Provider] - <Manan Monson - Last Filed: 04/06/17 16:54> Date of Encounter: 04/06/17 - Attending Attestation I have personally performed a face to face evaluation on this patient. I have reviewed and agree with the care plan. History and Exam by me shows: 76-year- old presents to the emergency department after a mechanical fall diagnosed with pneumonia documented on CT of chest. Her last echocardiogram was in 2013 which revealed aortic valve sclerosis. Current echocardiogram states severe aortic stenosis however a mean gradient of 20 mmHg. She has a preserved ejection fraction of 65% on her current echo as well. She denies any chest pain, shortness of breath, dyspnea on exertion, orthopnea, presyncope or syncope. With a calculated valve area 0.7 and severe aortic stenosis despite mean gradient of 20 mmHg the patient likely would benefit from reinterrogation of her aortic valve by transthoracic echo versus a transesophageal echo. This can be obtained as an outpatient. Follow-up with cardiology Assessment and Plan Discussion w patient/family: The assessment and plan as outlined above was discussed with the patient and/or family members who expressed understanding and agreement. All questions were answered. Thank you for involving us in the care of your patient. Please call with any questions. History of Present Illness History of present illness: Ms. White is a 76 year old female All Systems Review: A 10-system review of systems was performed and is negative for pertinent findings except as documented above in the HPI. Physical Examination Vital Signs, Last 4 Hours Temp Pulse Resp BP Pulse Ox 04/06/17 15:49 98.0 F 80 17 136/73 93 04/06/17 15:17 16 96 Results 04/06/17 04:31 04/06/17 04:31 Lab Results 04/06/17 04/06/17 04:31 04:31 WBC 5.9 Hgb 9.9 L Hct 30.2 L Plt Count 190 Sodium 130 L Potassium 3.4 L Chloride 97 L Carbon Dioxide 24 BUN 11 Creatinine 0.92 Glucose 217 H Calcium 9.4
--- NOTE | 2017-04-06 15:08 | Internal Med Progress Note ---
Date of Encounter: 04/06/17 Time of Encounter: 10:45 - Assessment and plan (1) Pneumonia Current Visit: Yes Status: Acute Assessment and plan: Patient has been experiencing weakness and fatigue as well as an unproductive frequent cough for the week prior to admission. CT chest reveals right lower lobe opacity. Blood cultures negative 2 Continue with Bronchodilators, Levaquin Oxygen as needed, titrate to maintain SPO2 greater than 92%.Pt is not requiring supplemental 02 Lungs are clear diminished in all garcia. There is no wheezing, rales, rhonchi , no respiratory distress. Patient denies productive cough. Qualifiers: Qualified Code(s): J18.1 - Lobar pneumonia, unspecified organism (2) Fall Current Visit: Yes Status: Acute Qualifiers: Qualified Code(s): W19.XXXA - Unspecified fall, initial encounter (3) Diabetes mellitus Current Visit: Yes Status: Acute Qualifiers: Qualified Code(s): E11.9 - Type 2 diabetes mellitus without complications (4) EKG abnormality Current Visit: Yes Status: Acute (5) DVT prophylaxis Current Visit: Yes Status: Acute - Subjective Interval history: Patient was seen and assessed at 1045 AM. She is alert, oriented, pleasant. She has hematomas to bilateral orbits, increased since yesterday. She denies change to her vision, dizziness, or difficulty with balance again today. She reports improvement in pain to left knee and right foot. She denies nausea, vomiting, diaphoresis, chest pain, dizziness, headache, or vision changes. AT this time we are still waiting on PT/OT evaluation and recommendations. Pt denies any recent chest pain or sob, states that she does feel more fatigued than normal, was not aware of . - Constitutional Vitals: Temp Pulse Resp BP Pulse Ox 98.1 F 63 15 115/72 94 04/06/17 11:30 04/06/17 11:30 04/06/17 11:30 04/06/17 11:30 04/06/17 11:30 General appearance: Present: cooperative, A&O X 3, pleasant, no acute distress, answers questions appropriately - Head Head exam: Present: atraumatic, normal inspection, normocephalic - Eye Eye exam: Present: conjuntiva pink, sclera anicteric - Neck Neck exam general surgery: Present: normal inspection, tenderness, supple, trachea midline. Absent: lymphadenopathy - Respiratory Respiratory exam: Present: CTAB. Absent: accessory muscle use, rales, rhonchi, wheezes - Cardiovascular Cardiovascular exam: Present: RRR, systolic murmur. Absent: gallop, rubs - Expanded Cardiovascular Exam Location: Present: [facility] Intensity: 2/6 - GI/Abdominal GI/Abdominal exam: Present: normal bowel sounds, soft. Absent: distended, hepatomegaly, tenderness - Extremities Exam Extremities exam: Present: normal capillary refill, normal inspection, tenderness, warm, radial pulses palpable and symmetrical. Absent: calf tenderness, cyanotic, pedal edema - Neurological Exam Neurological exam: Present: alert, oriented X3, no focal deficits. Absent: facial droop, speech deficit - Skin Skin exam: Present: dry, intact, normal color, warm. Absent: rash Internal Medicine: Result - Labs CBC & Chem 7: 04/06/17 04:31 04/06/17 04:31 Labs: Short CBC 04/06/17 Range/Units 04:31 WBC 5.9 (4.3-11.1) K/mcL Hgb 9.9 L (11.5-15.4) g/dL Hct 30.2 L (35.3-44.9) % Plt Count 190 (140-400) K/mcL Neutrophils # 4.1 (1.6-8.9) K/mcL BMP 04/06/17 04:31 Sodium 130 L Potassium 3.4 L Chloride 97 L Carbon Dioxide 24 BUN 11 Creatinine 0.92 Glucose 217 H Calcium 9.4 - Impressions Impressions Foot X-Ray 04/05/17 10:33 IMPRESSION: Postsurgical changes from prior right knee arthroplasty with mild soft tissue swelling seen over the patella which may be secondary to hematoma. No acute abnormality seen within the right foot. D/ / 04/05/2017 22:18:23 Angus Gonzalez MD [facility] Inter[facility] Provider: Angus Gonzalez MD Echocardiogram 04/05/17 12:00 Impressions: Technically adequate exam. Normal sinus rhythm. LVEF 65%. Mild concentric left ventricular hypertrophy. Mildly dilated left atrium. Trileaflet aortic valve. Severe aortic stenosis., ELIGIO 0.71 m2 Mild mitral regurgitation. Mild tricuspid regurgitation. Left Ventricular Wall Motion: Rest Echo Findings All wall segments showed normal motion. Findings: Study Quality * Technically adequate exam. ECG Findings * Normal sinus rhythm. Left Ventricle * LVEF 65%. * Mild concentric left ventricular hypertrophy. * There is no LV thrombus. Right Ventricle * Normal right ventricular structure and function. Left Atrium * Mildly dilated left atrium. Right Atrium * Normal right atrial size. Interatrial Septum * No evidence of PFO by color Doppler. Aortic Valve * Trileaflet aortic valve. * Mildly calcified aortic valve leaflets. * Moderately sclerotic aortic valve leaflets. * Mildly thickened aortic valve leaflets. * Trace aortic regurgitation. * Severe aortic stenosis., ELIGIO 0.71 m2 * Aortic valve leaflets are restricted. Mitral Valve * Normal mitral valve structure and function. * Mild mitral regurgitation. * Leaflets are not restricted. Tricuspid Valve * Mild tricuspid regurgitation. Pulmonic Valve * Pulmonic valve is not well visualized. Aorta * Normally sized aortic root. Pericardium * The pericardium appears normal. Knee X-Ray 04/05/17 20:45 IMPRESSION: Postsurgical changes from prior right knee arthroplasty with mild soft tissue swelling seen over the patella which may be secondary to hematoma. No acute abnormality seen within the right foot. D/ / 04/05/2017 22:18:23 Angus Gonzalez MD / [facility] Interpreting Provider: Angus Gonzalez MD Consult Discharge Plan - Plan Referrals: Jovanna Gordillo CNP [Primary Care Provider] -
[2017-04-06] MEDS: Gabapentin 300 MG CAPSULE PO SCH (20:14)
[2017-04-06] MEDS: rOPINIRole 1 MG TABLET PO SCH (20:14)
[2017-04-07] MEDS: Ipratropium/Albuterol Neb 3 ML IH SCH ×3 (03:28→15:52)
[2017-04-07 06:02] LABS: Basophils % 0.3 %; Eosinophils # 0.2 K/mcL (0.0-0.6); Eosinophils % 2.8 %; Hematocrit 31.9 % (35.3-44.9); Hemoglobin 10.7 g/dL (11.5-15.4); Immature Granulocytes % 3.8 % (0-4); Immature Platelets 7.3 % (1.1-6.1); Lymphocytes # 0.6 K/mcL (0.6-4.6); Lymphocytes % 11.2 %; Mean Corpuscular HGB Conc 33.5 g/dL (31.6-35.5); Mean Corpuscular Hemoglobin 30.2 pg (28.0-33.3); Mean Corpuscular Volume 90.1 fL (83.0-100.0); Mean Platelet Volume 11.4 fL (9.4-12.4); Monocytes % 17.1 %; Neutrophils # 3.7 K/mcL (1.6-8.9); Platelet Count 221 K/mcL (140-400); Red Blood Count 3.54 M/mcL (3.82-4.97); Red Cell Distribution Width 14.3 % (11.5-14.5); Segmented Neutrophils % 64.8 %
[2017-04-07] MEDS: *HR* Enoxaparin 40 MG/0.4 ML SYRINGE SQ SCH (06:07)
[2017-04-07 06:22] LABS: BUN/Creatinine Ratio 12 (6-26); Blood Urea Nitrogen 12 mg/dL (7-20); Calcium 9.2 mg/dL (8.6-10.8); Carbon Dioxide 26 mEq/L (19-29); Chloride 99 mEq/L (98-109); Glucose 250 mg/dL (70-99); Osmolality,Calculated 286 (280-300); Potassium 3.6 mEq/L (3.5-4.5); Sodium 134 mEq/L (136-145); eGFR For African Americans > 60 (> 60); eGFR For Non-African Americans 53 (> 60)
[2017-04-07] MEDS: amLODIPine 5 MG TABLET PO SCH (08:15)
[2017-04-07] MEDS: Cholecalciferol (D-3) 1,000 UNIT TABLET PO SCH (08:16)
[2017-04-07] MEDS: Insulin LISPRO 300 UNITS/3 ML VIAL SQ SCH ×3 (08:26→17:08)
[2017-04-07] MEDS: (Omega-3/Dha/Epa/Fish Oil [Fish Oil 1,000 Mg Softgel) PO SCH (10:29)
[2017-04-07] MEDS: Losartan/HCTZ 50-12.5 TABLET PO SCH (10:30)
[2017-04-07] MEDS ORDERED: Anastrozole 1 MG TABLET PO SCH (13:15)
--- NOTE | 2017-04-07 14:46 | Internal Med Progress Note ---
Date of Encounter: 04/07/17 Time of Encounter: 14:55 - Constitutional Vitals: Temp Pulse Resp BP Pulse Ox 97.7 F 67 16 116/70 95 04/07/17 11:27 04/07/17 11:27 04/07/17 11:27 04/07/17 11:27 04/07/17 11:27 General appearance: Present: cooperative, A&O X 3, pleasant, no acute distress, answers questions appropriately Internal Medicine: Result - Labs CBC & Chem 7: 04/07/17 05:10 04/07/17 05:10 Labs: Short CBC 04/07/17 Range/Units 05:10 WBC 5.7 (4.3-11.1) K/mcL Hgb 10.7 L (11.5-15.4) g/dL Hct 31.9 L (35.3-44.9) % Plt Count 221 (140-400) K/mcL Neutrophils # 3.7 (1.6-8.9) K/mcL BMP 04/07/17 05:10 Sodium 134 L Potassium 3.6 Chloride 99 Carbon Dioxide 26 BUN 12 Creatinine 1.01 Glucose 250 H Calcium 9.2 - Impressions Impressions Foot X-Ray 04/05/17 10:33 IMPRESSION: Postsurgical changes from prior right knee arthroplasty with mild soft tissue swelling seen over the patella which may be secondary to hematoma. No acute abnormality seen within the right foot. D/ / 04/05/2017 22:18:23 Angus Gonzalez MD / [facility] Interpreting Provider: Angus Gonzalez MD Knee X-Ray 04/05/17 20:45 IMPRESSION: Postsurgical changes from prior right knee arthroplasty with mild soft tissue swelling seen over the patella which may be secondary to hematoma. No acute abnormality seen within the right foot. D/ / 04/05/2017 22:18:23 Angus Gonzalez MD / [facility] Interpreting Provider: Angus Gonzalez MD Consult Discharge Plan - Plan Referrals: Jovanna Gordillo CNP [Primary Care Provider] -
--- NOTE | 2017-04-07 16:13 | Discharge Summary ---
Date of Encounter: 04/07/17 Time of Encounter: 16:10 - Discharge Diagnosis (1) Pneumonia Priority: Primary Status: Acute Comments: CT with right lower lobe opacity, concerning for pneumonia. Afebrile, no elevated WBC. Received 1 dose IV Levaquin, continue for a total of 7 doses. Qualifiers: Pneumonia type: due to unspecified organism Laterality: right Lung location: lower lobe of lung Qualified Code(s): J18.1 - Lobar pneumonia, unspecified organism (2) Aortic stenosis Priority: Primary Status: Acute Comments: TTE with severe aortic stenosis. Evaluated by cardiology who recommended outpatient follow-up with [facility]; no need for surgical intervention at this time. Qualifiers: Cardiac valve disease etiology: etiology unspecified Qualified Code(s): I35.0 - Nonrheumatic aortic (valve) stenosis (3) Diabetes mellitus Priority: Primary Status: Acute Comments: Per history. Hgb A1c 7.2% 11/2016. Continue home medication regimen. Blood sugars can be monitored at SNF. Qualifiers: Diabetes mellitus type: type 2 Diabetes mellitus complication status: without complication Diabetes mellitus adjunct faculty for medical terminology insulin use: without intermediate use Qualified Code(s): E11.9 - Type 2 diabetes mellitus without complications (4) Fall Priority: Primary Status: Acute Comments: With 2 falls on day of admission and subsequent ecchymosis face. Head, lumbar, thoracic CT nonacute. Plan for SNF at discharge. Qualifiers: Encounter type: initial encounter Qualified Code(s): W19.XXXA - Unspecified fall, initial encounter (5) Essential hypertension Priority: Primary Status: Acute Comments: per hx. BP controlled. Continue home BP medications. - Discharge Medications Prescriptions: Gabapentin [Neurontin] 600 mg PO HS #14 capsule levoFLOXacin [Levaquin] 750 mg PO Q48H #6 tablet Home Medications: Amlodipine Besylate 10 mg PO DAILY 04/05/17 [History] Cholecalciferol (Vitamin D3) [Vitamin D3] 1,000 unit PO DAILY 04/05/17 [History] Clopidogrel [Plavix] 75 mg PO DAILY 04/05/17 [History] Levothyroxine Sodium 75 mcg PO DAILY 04/05/17 [History] Losartan/Hydrochlorothiazide [Hyzaar 100-25 Tablet] 1 tab PO DAILY 04/05/17 [ History] [place]-3/Dha/Epa/Fish Oil [Fish Oil 1,000 mg Softgel] 1,000 mg PO DAILY 04/05/17 [History] Potassium Chloride [K-Tab ER] 20 meq PO BID 04/05/17 [History] Pravastatin Sodium [Pravachol] 40 mg PO DAILY 04/05/17 [History] Ropinirole HCl [Requip] 4 mg PO HS 04/05/17 [History] Sertraline [Zoloft] 100 mg PO DAILY 04/05/17 [History] glipiZIDE [Glucotrol] 5 mg PO DAILY 04/05/17 [History] hydroCHLOROthiazide [Hydrochlorothiazide] 25 mg PO DAILY 04/05/17 [History] metFORMIN [Glucophage] 1,000 mg PO BID 04/05/17 [History] Gabapentin [Neurontin] 600 mg PO HS #14 capsule 04/07/17 [Rx] levoFLOXacin [Levaquin] 750 mg PO Q48H #6 tablet 04/07/17 [Rx] Allergies/Adverse Reactions: 3 Allergy/AdvReac Type Severity Reaction Status Date / Time Penicillins [PCN] Allergy Swelling Verified 02/13/15 16:30 of Lip/Tongue/Throat Sulfa (Sulfonamide Allergy Swelling Verified 02/13/15 16:30 Antibiotics) of Lip/Tongue/Throat CT dye Allergy Hives Uncoded 02/13/15 16:30 Procedures/tests Complete & Pending: Procedures Performed prior 72 hours Category Date Time Status EV echocardiogram Routine Y 04/05/17 12:00 Completed Date of admission: 04/04/17 19:59 Primary care physician: Jovanna Gordillo, Consults: 04/05/17 00:30 Consult to Occupational Therapy [CONS] Routine Comment: Evaluate, develop and implement POC Reason for Consult: OT eval Consult to Physical Therapy [CONS] Routine Comment: Evaluate, develop and implement POC Reason for Consult: PT eval 04/05/17 13:28 Consult to Manager Supply Chain [CONS] Routine Reason for SW Consult: life alert and patient will most likely need some rehab once she is seen due to multiple falls at home. 04/06/17 11:59 Consult to Cardiology [CONS] Routine Comment: Consulting Provider: Cardiology Christa Reason for Consult: Severe per echo. Please see for recommendations. Time Notified: 12:00 Call Completed: Yes Discharging clinician: Sonam Martinez Anticipated date of discharge: 04/07/17 - Patient Status Disposition: Transfer SNF Condition: Good Functional capacity at discharge: uses cane/walker Overall status at discharge: patient is progressing back to baseline - Discharge Instructions Follow Up With: Jovanna Gordillo [employer] [Primary Care Provider] - - Diet and Activity Activity: as per physical therapy Diet: diabetic diet Interval History: Jluis examined at bedside. Patient says she feels almost back to baseline. Still with generalized weakness but overall improved. She would like to go to SNF for more therapy at discharge. No chest pain, no shortness of breath, no palpitations, no further lightheadedness or dizziness. Hospital course: See assessment and plan for hospital course. - Time Spent with Patient Total time spent providing and/or coordinating discharge services: - Constitutional Vitals: Temp Pulse Resp BP Pulse Ox 97.7 F 67 16 116/70 99 04/07/17 11:27 04/07/17 11:27 04/07/17 15:53 04/07/17 11:27 04/07/17 15:53 General appearance: Present: cooperative, A&O X 3, pleasant, no acute distress, answers questions appropriately - Head Head exam: Present: atraumatic, normocephalic - Eye Eye exam: Present: PERRL, conjuntiva pink, sclera anicteric Pupils: Present: PERRL - Neck Neck exam general surgery: Present: supple, trachea midline. Absent: lymphadenopathy - Respiratory Respiratory exam: Present: CTAB. Absent: accessory muscle use, rales, rhonchi, wheezes - Cardiovascular Cardiovascular exam: Present: RRR, +S1, +S2. Absent: diastolic murmur, gallop, rubs, systolic murmur - GI/Abdominal GI/Abdominal exam: Present: normal bowel sounds, soft, no peritoneal signs. Absent: distended, tenderness - Extremities Exam Extremities exam: Present: warm, radial pulses palpable and symmetrical. Absent : calf tenderness, cyanotic, pedal edema - Neurological Exam Neurological exam: Present: CN II-XII intact, oriented X3, no focal deficits. Absent: pronater drift, facial droop, speech deficit - Skin Skin exam: Present: dry, intact Additional comments: Ecchymosis to bilateral orbital
[2017-04-07 16:21] VITALS: BP 127/84
--- NOTE | 2017-04-07 16:29 | Physician Discharge Referral ---
ExtendedCare Referral Info Transfer To: [facility] Provider in Charge: Sonam Martinez CNP Provider in Charge after Transfer: PCP Institutional Level of Care: Skilled - Diagnosis (1) Pneumonia Status: Acute (2) Aortic stenosis Status: Acute (3) Diabetes mellitus Status: Acute (4) Fall Status: Acute (5) Essential hypertension Status: Acute - Transfer Medications Prescriptions: Gabapentin [Neurontin] 600 mg PO HS #14 capsule levoFLOXacin [Levaquin] 750 mg PO Q48H #6 tablet Home Medications: Amlodipine Besylate 10 mg PO DAILY 04/05/17 [History] Cholecalciferol (Vitamin D3) [Vitamin D3] 1,000 unit PO DAILY 04/05/17 [History] Clopidogrel [Plavix] 75 mg PO DAILY 04/05/17 [History] Levothyroxine Sodium 75 mcg PO DAILY 04/05/17 [History] Losartan/Hydrochlorothiazide [Hyzaar 100-25 Tablet] 1 tab PO DAILY 04/05/17 [ History] [place]-3/Dha/Epa/Fish Oil [Fish Oil 1,000 mg Softgel] 1,000 mg PO DAILY 04/05/17 [History] Potassium Chloride [K-Tab ER] 20 meq PO BID 04/05/17 [History] Pravastatin Sodium [Pravachol] 40 mg PO DAILY 04/05/17 [History] Ropinirole HCl [Requip] 4 mg PO HS 04/05/17 [History] Sertraline [Zoloft] 100 mg PO DAILY 04/05/17 [History] glipiZIDE [Glucotrol] 5 mg PO DAILY 04/05/17 [History] hydroCHLOROthiazide [Hydrochlorothiazide] 25 mg PO DAILY 04/05/17 [History] metFORMIN [Glucophage] 1,000 mg PO BID 04/05/17 [History] Gabapentin [Neurontin] 600 mg PO HS #14 capsule 04/07/17 [Rx] levoFLOXacin [Levaquin] 750 mg PO Q48H #6 tablet 04/07/17 [Rx] Allergies/Adverse Reactions: 3 Allergy/AdvReac Type Severity Reaction Status Date / Time Penicillins [PCN] Allergy Swelling Verified 02/13/15 16:30 of Lip/Tongue/Throat Sulfa (Sulfonamide Allergy Swelling Verified 02/13/15 16:30 Antibiotics) of Lip/Tongue/Throat CT dye Allergy Hives Uncoded 02/13/15 16:30 - Respiratory Orders None Smoking Cessation: Smoking cessation has been advised. For more information, call the [place] Tobacco Quit Line at 8-203-XCKJ-NOW. - Advance Directives Code Status: Full Code - Rehabiliation Orders Rehab Potential: Good Rehab Orders: Evaluation for Physical Therapy, Evaluation for Occupational Therapy - Diet Orders Cardiac CERTIFICATION: I certify that the transfer of the above named patient to an Extended Care Facility is necessary for the continuing treatment of the diagnosis listed. The above information is true and accurate reflection of patient's current condition. Confidential - Redisclosure prohibited without a patient's written consent.
[2017-04-08] MEDS ORDERED: Levofloxacin 750 MG/150 ML 750 MG/150 ML BAG IVPB SCH (09:00)
[2017-04-12] MEDS ORDERED: Patient Taking Own Medication 1 EACH PO SCH (11:00)
== END 2017-04-07 18:05 | DRG 195 ==
LOC: EMEROO 16:11 → 3BNU 16:11
PROVIDERS: ADMIT Internal Medicine; ATTEND Registered Nurse

== ENCOUNTER 2020-05-28 09:22 | Observation (INO) ==
[2020-05-28 09:53] LABS: Hemoglobin 11.2 g/dL (11.5-15.4); Immature Platelets 6.6 % (1.1-6.1); Mean Corpuscular HGB Conc 31.1 g/dL (31.6-35.5); Mean Corpuscular Hemoglobin 29.1 pg (28.0-33.3); Mean Corpuscular Volume 93.5 fL (83.0-100.0); Mean Platelet Volume 11.5 fL (9.4-12.4); Red Blood Count 3.85 M/mcL (3.82-4.97); Red Cell Distribution Width 15.2 % (11.5-14.5); White Blood Count 3.6 K/mcL (4.3-11.1)
[2020-05-28 09:58] LABS: INR 1.4; Prothrombin Time 16.3 Seconds (9.4-12.1)
[2020-05-28 10:01] LABS: Activated Partial Thrombo Time 29.1 Seconds (26.0-36.0)
[2020-05-28] MEDS ORDERED: methylPREDNISolone 125 MG/2 ML VIAL IVP STA (10:02)
[2020-05-28] MEDS ORDERED: Isovue-370 500 ML BOTTLE IVP ONE (10:03)
[2020-05-28 10:10] LABS: BUN/Creatinine Ratio 13 (6-26); Blood Urea Nitrogen 11 mg/dL (8-23); Calcium 9.5 mg/dL (8.6-10.3); Carbon Dioxide 26 mEq/L (23-29); Chloride 99 mEq/L (98-107); Glucose 220 mg/dL (70-105); Osmolality,Calculated 286 (280-300); Potassium 3.3 mEq/L (3.5-5.1); Sodium 135 mEq/L (136-145); Troponin I < 0.03 ng/mL (< 0.04); eGFR For African Americans > 60 (> 60); eGFR For Non-African Americans > 60 (> 60)
[2020-05-28 10:28] LABS: Thyroid Stimulating Hormone 1.539 mcIU/mL (0.340-5.600)
[2020-05-28 10:40] LABS: Bilirubin,Urine Negative (Negative); Blood,Urine Trace (Negative); Clarity,Urine Clear (Clear); Color,Urine Light-Yellow (Yellow); Glucose,Urine (UA) Normal (Normal); Ketones,Urine Negative (Negative); Leukocyte Esterase,Urine Negative (Negative); Mucus,Urine Few per lpf (None-Few); Nitrite,Urine Negative (Negative); Protein,Urine Trace mg/dL (Neg-Trace); RBC,Urine 0-3 per hpf (0-3); Specific Gravity,Urine 1.016 (1.010-1.025); Squamous Epithelial Cell,Urine Few per hpf (None-Few); Urobilinogen,Urine Normal (Normal); WBC,Urine 0-3 per hpf (0-3)
[2020-05-28] MEDS ORDERED: Ondansetron 4 MG/2 ML VIAL IVP PRN (12:58)
[2020-05-28] MEDS ORDERED: Naloxone 0.4 MG/ML INJ IVP PRN (12:58)
[2020-05-28] MEDS ORDERED: Dextrose Gel 15 GM/37.5 ML TUBE PO PRN ×2 (12:58)
[2020-05-28] MEDS ORDERED: *HR* Dextrose 50 % in Water (Vial) 50 ML VIAL IVP PRN (12:58)
[2020-05-28] MEDS ORDERED: D5% in Water 1,000 ML IVC PRN (12:58)
[2020-05-28] MEDS ORDERED: Perflutren Lipid Microsphere 1.3 ML in 0.9 % Sodium Chloride 8.7 ML IVP PRN (13:47)
[2020-05-28] MEDS: Insulin LISPRO 300 UNITS/3 ML VIAL SUBQ SCH (16:58)
[2020-05-28] MEDS: Acetaminophen 325 MG TABLET PO PRN (21:55)
[2020-05-28] MEDS: Apixaban 5 MG TABLET PO SCH (21:55)
[2020-05-28] MEDS ORDERED: Gabapentin 300 MG CAPSULE PO ONE (22:05)
[2020-05-28] MEDS ORDERED: Melatonin 3 MG TABLET PO ONE (22:05)
[2020-05-29 06:28] LABS: Eosinophils % 0.6 %; Hematocrit 37.7 % (35.3-44.9); Hemoglobin 12.1 g/dL (11.5-15.4); Immature Granulocytes % 0.6 % (0-4); Lymphocytes # 1.4 K/mcL (0.6-4.6); Lymphocytes % 22.5 %; Mean Corpuscular HGB Conc 32.1 g/dL (31.6-35.5); Mean Corpuscular Hemoglobin 29.4 pg (28.0-33.3); Mean Corpuscular Volume 91.5 fL (83.0-100.0); Mean Platelet Volume 11.5 fL (9.4-12.4); Monocytes # 1.6 K/mcL (0.0-1.3); Monocytes % 25.2 %; Neutrophils # 3.3 K/mcL (1.6-8.9); Platelet Count 158 K/mcL (140-400); Red Blood Count 4.12 M/mcL (3.82-4.97); Red Cell Distribution Width 15.1 % (11.5-14.5); Segmented Neutrophils % 51.1 %
[2020-05-29 06:35] LABS: White Blood Count 6.4 K/mcL (4.3-11.1)
[2020-05-29 06:50] LABS: BUN/Creatinine Ratio 14 (6-26); Blood Urea Nitrogen 12 mg/dL (8-23); Calcium 9.6 mg/dL (8.6-10.3); Carbon Dioxide 24 mEq/L (23-29); Chloride 103 mEq/L (98-107); Glucose 122 mg/dL (70-105); Magnesium 1.9 mg/dL (1.6-2.6); Osmolality,Calculated 287 (280-300); Phosphorous 2.4 mg/dL (2.7-4.5); Potassium 3.3 mEq/L (3.5-5.1); Sodium 138 mEq/L (136-145); eGFR For African Americans > 60 (> 60); eGFR For Non-African Americans > 60 (> 60)
[2020-05-29 06:51] LABS: Chol/HDL Ratio 2.6 (0-4.9)
[2020-05-29] MEDS: Insulin LISPRO 300 UNITS/3 ML VIAL SUBQ SCH ×3 (07:27→16:48)
[2020-05-29 07:30] LABS: Platelet Estimate Normal (Normal)
[2020-05-29] MEDS: Acetaminophen 325 MG TABLET PO PRN ×2 (08:07→20:52)
[2020-05-29] MEDS: Apixaban 5 MG TABLET PO SCH ×2 (08:07→20:52)
[2020-05-29 09:10] LABS: Estimated Average Glucose 171 mg/dl; Hemoglobin A1C 7.6 %
[2020-05-29] MEDS: Gabapentin 300 MG CAPSULE PO SCH (20:52)
[2020-05-29] MEDS: Melatonin 3 MG TABLET PO SCH (20:53)
[2020-05-30 03:50] LABS: Hematocrit 37.2 % (35.3-44.9); Hemoglobin 11.7 g/dL (11.5-15.4); Mean Corpuscular HGB Conc 31.5 g/dL (31.6-35.5); Mean Corpuscular Hemoglobin 28.7 pg (28.0-33.3); Mean Corpuscular Volume 91.2 fL (83.0-100.0); Mean Platelet Volume 11.8 fL (9.4-12.4); Platelet Count 151 K/mcL (140-400); Red Blood Count 4.08 M/mcL (3.82-4.97); Red Cell Distribution Width 15.5 % (11.5-14.5); White Blood Count 7.1 K/mcL (4.3-11.1)
[2020-05-30 04:07] LABS: BUN/Creatinine Ratio 20 (6-26); Blood Urea Nitrogen 18 mg/dL (8-23); Calcium 9.6 mg/dL (8.6-10.3); Carbon Dioxide 24 mEq/L (23-29); Chloride 102 mEq/L (98-107); Glucose 127 mg/dL (70-105); Osmolality,Calculated 281 (280-300); Potassium 4.1 mEq/L (3.5-5.1); Sodium 134 mEq/L (136-145); eGFR For African Americans > 60 (> 60); eGFR For Non-African Americans > 60 (> 60)
[2020-05-30] MEDS: Insulin LISPRO 300 UNITS/3 ML VIAL SUBQ SCH ×3 (07:08→16:21)
[2020-05-30] MEDS: Anastrozole 1 MG TABLET PO SCH (07:38)
[2020-05-30] MEDS: Apixaban 5 MG TABLET PO SCH ×2 (07:38→20:53)
[2020-05-30] MEDS: (Donepezil Hcl 23 MG) PO SCH (07:41)
[2020-05-30] MEDS: Melatonin 3 MG TABLET PO SCH (20:54)
[2020-05-30] MEDS: Gabapentin 300 MG CAPSULE PO SCH (20:54)
[2020-05-30] MEDS: Acetaminophen 325 MG TABLET PO PRN (20:54)
[2020-05-31] MEDS ORDERED: *HR* Metoprolol 5 MG/5 ML VIAL IVP ONE (00:02)
[2020-05-31] MEDS ORDERED: *HR* HYDROcodone/Acet 5/325 mg TABLET PO ONE (00:02)
[2020-05-31 08:05] LABS: Hemoglobin 11.7 g/dL (11.5-15.4); Mean Corpuscular HGB Conc 31.6 g/dL (31.6-35.5); Mean Corpuscular Hemoglobin 29.8 pg (28.0-33.3); Mean Corpuscular Volume 94.4 fL (83.0-100.0); Mean Platelet Volume 11.9 fL (9.4-12.4); Platelet Count 132 K/mcL (140-400); Red Blood Count 3.92 M/mcL (3.82-4.97); Red Cell Distribution Width 15.6 % (11.5-14.5); White Blood Count 8.4 K/mcL (4.3-11.1)
[2020-05-31] MEDS: Anastrozole 1 MG TABLET PO SCH (08:09)
[2020-05-31] MEDS: Apixaban 5 MG TABLET PO SCH (08:09)
[2020-05-31] MEDS: (Donepezil Hcl 23 MG) PO SCH (08:10)
[2020-05-31] MEDS: Insulin LISPRO 300 UNITS/3 ML VIAL SUBQ SCH ×2 (08:10→12:02)
[2020-05-31 08:35] LABS: Alanine Aminotransferase 31 Units/L (7-52); Albumin 4.2 g/dL (3.5-5.7); Albumin/Globulin Ratio 1.4 (1.1-2.2); Alkaline Phosphatase 46 Units/L (34-104); Aspartate Amino Transferase 28 Units/L (13-39); BUN/Creatinine Ratio 18 (6-26); Bilirubin,Total 0.5 mg/dL (0.3-1.0); Blood Urea Nitrogen 17 mg/dL (8-23); Calcium 9.5 mg/dL (8.6-10.3); Carbon Dioxide 24 mEq/L (23-29); Chloride 104 mEq/L (98-107); Globulin 2.9 g/dL (2.4-3.5); Glucose 153 mg/dL (70-105); Magnesium 2.1 mg/dL (1.6-2.6); Osmolality,Calculated 289 (280-300); Phosphorous 3.7 mg/dL (2.7-4.5); Potassium 4.1 mEq/L (3.5-5.1); Sodium 137 mEq/L (136-145); Total Protein 7.1 g/dL (6.4-8.9); eGFR For African Americans > 60 (> 60); eGFR For Non-African Americans 57 (> 60)
[2020-05-31 08:40] LABS: Monocytes # 1.5 K/mcL (0.0-1.3); Neutrophils # 5.9 K/mcL (1.6-8.9)
[2020-05-31 08:41] LABS: Anisocytosis 1+ (Not Present)
[2020-05-31 08:42] LABS: Platelet Estimate Decreased (Normal)
[2020-05-31] MEDS ORDERED: Losartan/HCTZ 50-12.5 TABLET PO SCH (09:00)
[2020-05-31] MEDS ORDERED: amLODIPine 5 MG TABLET PO SCH (09:00)
[2020-05-31 17:27] VITALS: BP 133/78
== END 2020-05-31 17:42 ==
LOC: 2ANU 09:22 → EMEROOARM 09:22 → SUATTDRO 14:02 → 2ANU 14:43
PROVIDERS: ADMIT Internal Medicine; ATTEND Internal Medicine